=== PATIENT | female | born 1990 | race Caucasian/White ===

== ENCOUNTER → 2017-08-13 14:32 | Outpatient (REF) | payer OTHER, SELFPAY ==
[2017-08-13 19:50] LABS: Basophils % 0.4 % (0.1-2.0); Eosinophils # 0.2 K/mm3 (0.0-0.4); Eosinophils % 3.2 % (0.1-12.0); Hematocrit 39.6 % (37.0-47.0); Hemoglobin 11.8 g/dL (12.2-16.2); Lymphocytes # 2.1 K/mm3 (0.7-4.5); Mean Corpuscular HGB Conc 29.7 g/dL (31.8-35.4); Mean Corpuscular Hemoglobin 24.1 pg (27.0-31.2); Mean Platelet Volume 7.7 fl (7.4-10.4); Monocytes # 0.3 K/mm3 (0.1-1.0); Monocytes % 4.8 % (1.7-9.3); Neutrophils # 3.5 K/mm3 (1.8-7.8); Neutrophils % 57.6 % (37.0-80.0); Platelet Count 294 K/mm3 (142-424); Red Blood Count 4.89 M/mm3 (4.20-5.40); Red Cell Distribution Width 17.5 % (11.5-17.5)
[2017-08-13 19:59] LABS: Alanine Aminotransferase 39 U/L (12-78); Albumin Level 3.8 gm/dL (3.4-5.0); Alkaline Phosphatase 103 U/L (46-116); Anion Gap 10.2 mEq/L (5-15); Aspartate Amino Transferase 24 U/L (15-37); Bilirubin,Total 0.6 mg/dL (0.2-1.0); Blood Urea Nitrogen 7 mg/dL (7-18); Calcium 8.6 mg/dL (8.5-10.1); Carbon Dioxide 30 mmol/L (21.0-32.0); Chloride 104 mmol/L (98-107); Chol/HDL Ratio 9.8 (1-3.5); Cholesterol 265 mg/dL (140-200); Estimated Glomerular Filt Rate 147 ml/min (>60); Free T4 (Free Thyroxine) 0.97 ng/dl (0.76-1.46); GFR (African American) 178 ML/MIN (>60); Globulin 3.7 gm/dl (1.3-3.2); Glucose 98 mg/dL (74-106); HDL Cholesterol 27 mg/dL (29-89); Potassium 4.2 mmoL/L (3.5-5.1); Sodium 140 mmol/L (136-145); Thyroid Stimulating Hormone 1.59 uIU/ml (0.358-3.740); Total Protein,Serum 7.5 gm/dL (6.4-8.2)
[2017-08-13 20:26] LABS: Triglycerides 582 mg/dL (30-200)
[2017-08-16 15:11] LABS: Vitamin B12 792 pg/mL (232-1245); Vitamin D 25 Hydroxy 21.5 ng/mL (30.0-100.0)
== END ==
LOC: LAB 14:32
PROVIDERS: Visit Provider Emergency Medicine
DX: R53.83 Other fatigue (principal)
CPT/HCPCS: 80053; 80061; 82607; 82652; 84439; 84443; 85025

== ENCOUNTER 2021-01-07 12:37 | Emergency (ER) | payer OTHER, SELFPAY ==
[2021-01-07 12:39] VITALS: BP 138/90; PULSE 101; RESP 21; TEMP 37.2; O2SAT 98; BMI 36.2
[2021-01-07 13:42] LABS: Adenovirus,PCR Not Detected (NotDetected); Bordetella Pertussis Not Detected (NotDetected); Chlamydophila Pneumoniae, PCR Not Detected (NotDetected); Coronavirus 19, PCR Not Detected (NotDetected); Coronavirus 229E Not Detected (NotDetected); Coronavirus NL63 Not Detected (NotDetected); Coronavirus OC43 Not Detected (NotDetected); Coronovirus HKU1,PCR Not Detected (NotDetected); Human Metapneumovirus Not Detected (NotDetected); Influenza A, PCR Not Detected (NotDetected); Influenza AH1, 2009 Not Detected (NotDetected); Influenza AH1, PCR Not Detected (NotDetected); Influenza AH3,PCR Not Detected (NotDetected); Influenza B, PCR Not Detected (NotDetected); Mycoplasma Pneumoniae, PCR Not Detected (NotDetected); Parainfluenza 1, PCR Not Detected (NotDetected); Parainfluenza 2, PCR Not Detected (NotDetected); Parainfluenza 3, PCR Not Detected (NotDetected); Parainfluenza 4, PCR Not Detected (NotDetected); Respiratory Syncytial Virus Not Detected (NotDetected); Rhinovirus/Enterovirus Not Detected (NotDetected)
[2021-01-07 13:45] LABS: UTC Strep Screen (Rapid) Negative (Negative)
--- NOTE | 2021-01-07 14:31 | HMH.EDUTC ---
[facility] [place] Disposition Clinical Impression: Bronchitis Disposition: Home, Self-Care Condition on Discharge: Good Instructions: DI for Acute Bronchitis Additional Instructions: I will call with results of upper respiratory panel Prescriptions: Albuterol Sulfate [Albuterol Sulfate Hfa] 2 puff IH Q4HP PRN 30 Days #1 hfa.aer.[id number] PRN Reason: Wheezing Transmission Status: Pending to [facility] predniSONE [Prednisone 20mg Tab] 20 mg PO BID 5 Days #10 tab Transmission Status: Pending to [facility] Promethazine/Dextromethorphan [Promethazine-Dm Syrup] 5 - 10 ml PO Q4HP PRN 10 Days #180 ml PRN Reason: Cough Transmission Status: Pending to [facility] Azithromycin [Z-Kostas 250mg Tab] 250 mg PO DIRECTED #6 tab Transmission Status: Pending to [facility] Referrals: Cristofer Arriaga [Primary Care Provider] - Time of Disposition: 14:39 Medical Decision Making - Edward Inquiry Pt receiving controlled substance: No Vital Signs: 01/07/21 12:39 Temperature 98.9 F Temperature Source Oral Pulse Rate [Left Radial] 101 H Respiratory Rate 21 Blood Pressure [Right Arm] 138/90 Blood Pressure Mean [Right Arm] 106 Blood Pressure Source [Right Arm] Automatic Cuff Blood Pressure Position [Right Arm] Sitting 02 Sat by Pulse Oximetry 98 Oxygen Delivery Method Room Air - Lab Data Lab results reviewed: Yes: I reviewed the patient's lab results. Lab Results 01/07/21 13:27: Strep Scn Rapid Clinic Negative 01/07/21 13:30: SARS-CoV-2 (PCR) Not detected, Influenza A Untype (PCR) Not detected, Influenza Type B (PCR) Not detected Orders (Tests/Meds): ORDERS Category Date Time Status Upper Respiratory Panel, PCR Routine Lab 01/07/21 13:30 Received Strep Screen Confirmation Stat Micro 01/07/21 13:27 Received [facility] [place] HPI - General Stated complaint: sore throat cough headache Time Seen by Provider: 01/07/21 14:31 Mode of Arrival: Ambulatory Source of Information: Patient Limitations: No Limitations HEENT Symptoms (Recalled from RN notes): Yes Resp Symptoms (Recalled from RN notes): No Skin Symptoms (Recalled from RN notes): No MS Symptoms (Recalled from RN notes): No Functional Status (Recalled from RN notes): wnl - History of Present Illness Provider Complaint: Bilateral ear pain, cough, congestion, sore throat X 3 days. No fever. Has body aches and chills. No vomiting or diarhea. Onset (ago): day(s) (3) Location: chest Relieving factors: none Exacerbating factors: none Associated symptoms: cough, malaise Treatments prior to arrival: none - Related Data Home Medications Medication Instructions Recorded Confirmed ferrous sulfate 325 mg (65 mg 325 mg PO DAILY tab 06/05/19 06/05/19 iron) tablet ibuprofen 600 mg tablet 600 mg PO TID PRN tab 06/05/19 06/05/19 Previous Rx's Medication Instructions Recorded multivitamin,tm-shql-yixttved 1 tab PO DAILY #90 tab 01/13/18 omeprazole 40 mg capsule,delayed See Rx Instructions .ROUTE 10/30/18 release .COMPLEX #90 unspecified fluticasone propionate 50 1 spray INTRANASAL QDAY #9.9 ml 02/25/19 mcg/actuation nasal spray,suspension Mupirocin [Bactroban 2% Ointment 1 applicatio TP TID 7 Days #1 tube 03/28/19 22gm tube] ergocalciferol (vitamin D2) 1,250 See Rx Instructions .ROUTE 05/06/19 mcg (50,000 unit) capsule .COMPLEX #12 unspecified amoxicillin 875 mg tablet 875 mg PO BID #14 tab 06/05/19 benzonatate 200 mg capsule 200 mg PO TID PRN #30 cap 06/05/19 cholecalciferol (vitamin D3) 25 See Rx Instructions .ROUTE 06/23/19 mcg (1,000 unit) tablet .COMPLEX #90 unspecified citalopram 40 mg tablet 40 mg PO DAILY #90 tab 07/10/19 metoprolol succinate 25 mg See Rx Instructions .ROUTE 07/10/19 tablet,extended release 24 hr .COMPLEX #90 unspecified Loperamide HCl [Loperamide] 2 mg PO TIDP PRN #10 tab 07/31/19 Ondansetron [Zofran 4mg ODT] 4 mg PO TIDP PRN #10 tab.rapdis 07/31/19 Albuterol Sulfate [Albuterol 2 puff IH
[2021-01-07 14:44] VITALS: BP 138/90; PULSE 101; RESP 21; TEMP 37.2; O2SAT 98
== END 2021-01-07 14:47 | disposition home or self-care (01) ==
PROVIDERS: Emergency Provider Physician Assistant; PCP Family Medicine
DX: J20.9 Acute bronchitis, unspecified (principal); F41.9 Anxiety disorder, unspecified; K21.9 Gastro-esophageal reflux disease without esophagitis; I10 Essential (primary) hypertension; F17.210 Nicotine dependence, cigarettes, uncomplicated
CPT/HCPCS: 87486; 87581; 87633; 87798; 87880; 99203; G0463; U0003

== ENCOUNTER → 2021-04-14 20:14 | Outpatient (CLI) | payer OTHER, SELFPAY | PROVIDERS: Visit Provider Nurse Practitioner Family | DX: Z20.822 Contact with and (suspected) exposure to COVID-19 (principal); J02.9 Acute pharyngitis, unspecified | CPT/HCPCS: C9803; U0003; U0005 ==

== ENCOUNTER 2021-04-28 09:00 | Emergency (ER) | payer OTHER, SELFPAY ==
[2021-04-28 09:00] VITALS: BP 156/100; PULSE 110; RESP 18; TEMP 37.1; O2SAT 95; BMI 41.5
[2021-04-28 09:26] LABS: UTC Influenza A Antigen Negative (Negative); UTC Influenza B Antigen Negative (Negative)
--- NOTE | 2021-04-28 09:47 | HMH.EDUTC ---
[facility] [place] Clinical Impression: Viral syndrome, Bronchitis, Exposure to COVID-19 virus, Hypokalemia Disposition: Home, Self-Care Condition on Discharge: Good Instructions: DI for Viral Syndrome Additional Instructions: Drink plenty of fluids. Take tylenol or ibuprofen for pain or fever. Take the medications as directed. Follow up with your regular doctor. GO TO THE ER FOR ANY WORSENING SYMPTOMS Quarantine until you know the results of your covid-19 test. If it is positive, the health department should call you and give you further instructions about your length of Quarantine and other things. Notify your school or workplace of your results and follow their instructions regarding return to work/school. Prescriptions: Ondansetron [Zofran 4mg ODT] 4 mg PO Q8HP PRN #20 tab PRN Reason: Nausea Transmission Status: Received by [facility] dexAMETHasone [Decadron] 6 mg PO DAILY 6 Days #6 tab Transmission Status: Received by [facility] Potassium Chloride [K-Tab ER 20 mEq] 40 meq PO ONCE #2 tab Transmission Status: Received by [facility] Azithromycin [Z-Kostas 250mg Tab*] 250 mg PO UD DOSE PK #6 tab Transmission Status: Received by [facility] Referrals: Cristofer Arriaga [Primary Care Provider] - Forms: Work/School Release Time of Disposition: 09:50 Medical Decision Making - Medical Records Medical records reviewed: No: I reviewed the patient's medical records. - Edward Inquiry Pt receiving controlled substance: No Vital Signs: 04/28/21 09:00 04/28/21 11:10 Temperature 98.7 F 98.7 F Temperature Source Oral Pulse Rate 110 H Pulse Rate [Right Brachial] 110 H Respiratory Rate 18 18 Blood Pressure 156/100 H Blood Pressure [Right Arm] 156/100 H Blood Pressure Mean [Right Arm] 118 Blood Pressure Source [Right Arm] Automatic Cuff Blood Pressure Position [Right Arm] Sitting 02 Sat by Pulse Oximetry 95 Oxygen Delivery Method Room Air - Lab Data Lab results reviewed: Yes: I reviewed the patient's lab results. Lab Results 04/28/21 09:15: Influenza Type A Ag Negative, Influenza Type B Ag Negative 04/28/21 09:52: Strep Scn Rapid Clinic Negative 04/28/21 10:00: WBC 6.1, RBC 5.16, Hgb 17.0 H, Hct 48.1 H, MCV 93.2, MCH 33.0 H, MCHC 35.4, RDW 13.7, Plt Count 246, MPV 7.8, Neut % (Auto) 60.5, Lymph % (Auto) 29.9, [place] % (Auto) 7.5, Eos % (Auto) 0.5, Baso % (Auto) 1.5, Neut # (Auto) 3.7, Lymph # (Auto) 1.8, [place] # (Auto) 0.5, Eos # (Auto) 0.0, Baso # (Auto) 0.1 04/28/21 10:00: Sodium 136, Potassium 3.4 L, Chloride 100, Carbon Dioxide 25, Anion Gap 14.4, BUN 7, Creatinine 0.60, Estimated Creat Clear 102, Estimated GFR 116, Est GFR ( Amer) 140, Glucose 199 H, Calcium 9.2, Total Bilirubin 0.9, AST 48 H, ALT 47, Alkaline Phosphatase 92, Total Protein 7.8, Albumin 4.7, Globulin 3.1, Albumin/Globulin Ratio 1.5 Result diagrams: 04/28/21 10:00 04/28/21 10:00 Orders (Tests/Meds): ED MEDICATIONS Generic Name Dose Route Start Last Admin Trade Name Freq PRN Reason Stop Dose Admin Sodium Chloride 1,000 mls @ 999 mls/hr 04/28/21 10:30 04/28/21 10:05 Sod Chlor 0.9% 1000ml Bag IV 04/28/21 11:30 999 mls/hr .Q1H1M LIZ Administration Discontinued Medications Generic Name Dose Route Start Last Admin Trade Name Freq PRN Reason Stop Dose Admin Ibuprofen 800 mg 04/28/21 11:06 04/28/21 11:09 Ibuprofen 400 Mg Tablet PO 04/28/21 11:07 800 mg ONCE ONE Administration Ondansetron HCl 4 mg 04/28/21 11:06 04/28/21 11:09 Ondansetron 4mg Odt SL 04/28/21 11:07 4 mg ONCE ONE Administration ORDERS Category Date Time Status Covid-19 Nasal PCR ([facility]) Routine Lab 04/28/21 09:45 Received Strep Screen Confirmation Routine Micro 04/28/21 09:52 Received [facility] [place] HPI - General Stated complaint: covid symptoms, fever Time Seen by Provider: 04/28/21 09:15 Mode of Arrival: Ambulatory Source of Information: Patient Limitations
[2021-04-28 09:58] LABS: UTC Strep Screen (Rapid) Negative (Negative)
[2021-04-28 10:44] LABS: Basophils # 0.1 K/mm3 (0-0.2); Basophils % 1.5 % (0.1-2.0); Eosinophils % 0.5 % (0.1-12.0); Hematocrit 48.1 % (37.0-47.0); Lymphocytes # 1.8 K/mm3 (0.7-4.5); Lymphocytes % 29.9 % (10-50); Mean Corpuscular HGB Conc 35.4 g/dL (31.8-35.4); Mean Corpuscular Volume 93.2 fl (81-99); Mean Platelet Volume 7.8 fl (7.4-10.4); Monocytes # 0.5 K/mm3 (0.1-1.0); Monocytes % 7.5 % (1.7-9.3); Neutrophils # 3.7 K/mm3 (1.8-7.8); Neutrophils % 60.5 % (37.0-80.0); Platelet Count 246 K/mm3 (142-424); Red Blood Count 5.16 M/mm3 (4.20-5.40); Red Cell Distribution Width 13.7 % (11.5-17.5); White Blood Count 6.1 K/mm3 (4.8-10.8)
[2021-04-28 10:46] LABS: Chloride 100 mmol/L (98-107); Potassium 3.4 mmoL/L (3.5-5.1); Sodium 136 mmol/L (136-145)
[2021-04-28 10:49] LABS: Alanine Aminotransferase 47 U/L (12-78); Albumin Level 4.7 g/dl (3.5-5.0); Albumin/Globulin Ratio 1.5 (1.1-1.8); Alkaline Phosphatase 92 U/L (38-126); Anion Gap 14.4 mEq/L (5-15); Aspartate Amino Transferase 48 U/L (14-36); Bilirubin,Total 0.9 mg/dl (0.2-1.3); Blood Urea Nitrogen 7 mg/dl (7-17); Carbon Dioxide 25 mmol/L (22.0-30.0); Creatinine Clearance Estimated 102 mL/min (50-200); Estimated Glomerular Filt Rate 116 ml/min (>60); GFR (African American) 140 ML/MIN (>60); Globulin 3.1 g/dL (1.3-3.2); Total Protein,Serum 7.8 g/dl (6.3-8.2)
[2021-04-28 10:50] LABS: Calcium 9.2 mg/dl (8.4-10.2); Glucose 199 mg/dl (74-100)
[2021-04-28 11:10] VITALS: BP 156/100; PULSE 110; RESP 18; TEMP 37.1; O2SAT 95
--- NOTE | 2021-05-02 12:31 | INFXCTL.NOTE ---
Notified patient of COVID-19 positive results. Patient stated both she and are aware, received results from [facility] portal. - YOLANDA Carney
== END 2021-04-28 11:32 | disposition home or self-care (01) ==
PROVIDERS: Emergency Provider Nurse Practitioner Family; PCP Family Medicine
DX: U07.1 COVID-19 (principal); J20.9 Acute bronchitis, unspecified; E87.6 Hypokalemia
CPT/HCPCS: 80053; 85025; 87804; 87880; 96365; 99202; C9803; G0463; U0003; U0005

== ENCOUNTER 2021-08-08 02:59 | Emergency (ER) | payer OTHER, SELFPAY ==
[2021-08-08 03:01] VITALS: BP 126/86; PULSE 78; RESP 18; TEMP 36.9; O2SAT 98; BMI 39.4
[2021-08-08 03:28] VITALS: BP 123/80; BP 124/74; BP 126/78; PULSE 73; PULSE 78; PULSE 80
[2021-08-08 03:31] LABS: Coronavirus 19, PCR Not Detected (NotDetected); Influenza A, PCR Not Detected (NotDetected); Influenza B, PCR Not Detected (NotDetected)
--- NOTE | 2021-08-08 03:31 | XR_ITS ---
PROCEDURE INFORMATION: Exam: XR Chest Exam date and time: 08/08/2021 3:31 AM Age: 30 years old Clinical indication: Sternal or substernal pain; Additional info: Chest pain TECHNIQUE: Imaging protocol: XR of the chest. Views: 2 views. COMPARISON: CR CXR2V XR chest 2V 01/10/2018 10:48 AM FINDINGS: Lungs: No acute findings or consolidation. Pleural spaces: No pleural effusion. No pneumothorax. Heart/Mediastinum: No acute findings or cardiomegaly. Bones/joints: No acute findings. IMPRESSION: No acute cardiopulmonary findings.
[2021-08-08 03:33] LABS: Microscopic, Urine URINE MICROSCOPIC (MICROSCOPIC)
[2021-08-08 03:35] LABS: Basophils # 0.2 K/mm3 (0-0.2); Basophils % 2.7 % (0.1-2.0); Eosinophils # 0.1 K/mm3 (0.0-0.4); Eosinophils % 1.2 % (0.1-12.0); Hematocrit 52.7 % (37.0-47.0); Hemoglobin 16.7 g/dL (12.2-16.2); Lymphocytes # 2.4 K/mm3 (0.7-4.5); Lymphocytes % 31.4 % (10-50); Mean Corpuscular HGB Conc 31.8 g/dL (31.8-35.4); Mean Corpuscular Hemoglobin 31.6 pg (27.0-31.2); Mean Corpuscular Volume 99.4 fl (81-99); Mean Platelet Volume 8.1 fl (7.4-10.4); Monocytes # 0.3 K/mm3 (0.1-1.0); Monocytes % 3.8 % (1.7-9.3); Neutrophils # 4.7 K/mm3 (1.8-7.8); Neutrophils % 60.8 % (37.0-80.0); Platelet Count 228 K/mm3 (142-424); Red Cell Distribution Width 13.2 % (11.5-17.5); White Blood Count 7.7 K/mm3 (4.8-10.8)
--- NOTE | 2021-08-08 03:36 | CT_ITS ---
PROCEDURE INFORMATION: Exam: CT Abdomen And Pelvis With Contrast Exam date and time: 08/08/2021 3:36 AM Age: 30 years old Clinical indication: Nausea and other: Diarrhea; Prior surgery; Surgery type: , hysterectomy; Additional info: Loose stools TECHNIQUE: Imaging protocol: Computed tomography of the abdomen and pelvis with contrast. Radiation optimization: All CT scans at this facility use at least one of these dose optimization techniques: automated exposure control; mA and/or kV adjustment per patient size (includes targeted exams where dose is matched to clinical indication); or iterative reconstruction. Contrast material: ISOVUE; Contrast volume: 75 ml; Contrast route: IV; COMPARISON: CT ABDOMEN PELVIS W CON 07/31/2019 8:41 AM FINDINGS: Liver: No acute findings. No mass. Gallbladder and bile ducts: No acute findings, calcified stones or ductal dilation. Pancreas: No acute findings, focal abnormality or ductal dilation. Spleen: No splenomegaly or focal abnormality. Adrenal glands: Normal. No mass. Kidneys and ureters: No hydronephrosis. Stomach and bowel: No obstruction. No mucosal thickening. Appendix: No evidence of appendicitis. Intraperitoneal space: No free air. No significant fluid collection. Vasculature: No abdominal aortic aneurysm. Lymph nodes: No pathologically enlarged lymph nodes. Urinary bladder: Unremarkable as visualized. Reproductive: Unremarkable as visualized. Bones/joints: No acute fracture. Soft tissues: No acute findings. IMPRESSION: No acute findings.
[2021-08-08 03:40] LABS: Alanine Aminotransferase 33 U/L (12-78); Albumin Level 4.7 g/dl (3.5-5.0); Albumin/Globulin Ratio 1.7 (1.1-1.8); Alkaline Phosphatase 65 U/L (38-126); Amylase 67 U/L (30-110); Anion Gap 11.2 mEq/L (5-15); Aspartate Amino Transferase 32 U/L (14-36); Bilirubin,Total 1.2 mg/dl (0.2-1.3); Blood Urea Nitrogen 16 mg/dl (7-17); Calcium 9.3 mg/dl (8.4-10.2); Carbon Dioxide 26 mmol/L (22.0-30.0); Chloride 102 mmol/L (98-107); Creatinine Clearance Estimated 201 mL/min (50-200); Estimated Glomerular Filt Rate 116 ml/min (>60); GFR (African American) 140 ML/MIN (>60); Globulin 2.7 g/dL (1.3-3.2); Glucose 96 mg/dl (74-100); Lipase 133 U/L (23-300); Potassium 4.2 mmoL/L (3.5-5.1); Sodium 135 mmol/L (136-145); Total Protein,Serum 7.4 g/dl (6.3-8.2)
[2021-08-08 03:42] LABS: Appearance,Urine CLEAR (Clear); Bilirubin,Urine Negative (Negative); Blood, Urine Negative (Negative); Color,Urine YELLOW (Yellow); Glucose,Urine (UA) Negative (Negative); Ketones,Urine 1+ (Negative); Leukocyte Esterase,Urine Negative (Negative); Nitrate,Urine Negative (Negative); PH,Urine 5.5 (5.0-8.5); Protein,Urine Negative (Negative); Urobilinogen,Urine 0.2 EU/dl (0.2)
[2021-08-08 03:45] LABS: C-Reactive Protein 2.2 mg/L (0-4)
[2021-08-08 03:50] LABS: Bacteria,Urine 1+ /lpf; WBC,Urine Occasional #/hpf (0-3)
[2021-08-08 04:00] LABS: Procalcitonin < 0.030 ng/mL (0.0-2.0)
[2021-08-08 04:01] VITALS: BP 111/62; PULSE 63; O2SAT 97
--- NOTE | 2021-08-08 04:11 | PC.NURSE ---
PT TO RADIOLOGY VIA AMBULATION. NO ACUTE DISTRESS NOTED.
--- NOTE | 2021-08-08 04:25 | PC.NURSE ---
PT RETURN FROM RADIOLOGY. NO COMPLAINTS VOICED. NO ACUTE DISTRESS NOTED. PT AWARE OF NEED FOR STOOL SAMPLE.
[2021-08-08 04:28] LABS: Erythrocyte Sedimentation Rate 15 mm/hr (0-20)
[2021-08-08 04:30] VITALS: BP 102/65; PULSE 66; O2SAT 99
--- NOTE | 2021-08-08 04:38 | PC.NURSE ---
PT UPDATED. PT REPORTS NAUSEA IS COMPLETELY RESOLVED AND REQUESTS NOTE FOR WORK UPON DISCHARGE.
[2021-08-08 05:00] VITALS: BP 110/76; PULSE 67; O2SAT 99
--- NOTE | 2021-08-08 05:10 | HMH.EDNVD ---
ED Disposition Clinical Impression: Gastroenteritis Disposition: Home, Self-Care Condition on Discharge: Good Instructions: DI for Diarrhea and Traveler's Diarrhea -- Adult Additional Instructions: fluids and see pcp for folllow up Referrals: Cristofer Arriaga [Primary Care Provider] - - Critical Care Critical Care Time: No Attestation: On 08/08/21, the high probability of a clinically significant, sudden or life threatening deterioration of the following system(s) required my full and direct attention, intervention and personal management. The time I documented below is in addition to time spent performing reported procedures but includes the following listed in this critical care notation. Medical Decision Making - Medical Records Medical records reviewed: Yes: I reviewed the patient's medical records. - Edward Inquiry Pt receiving controlled substance: No Vital Signs: 08/08/21 03:01 08/08/21 03:28 Temperature 98.5 F Temperature Source Oral Pulse Rate [Left Radial] 78 Pulse Rate [Orthostatic Lying Right] 73 Pulse Rate [Orthostatic Sitting Right] 78 Pulse Rate [Orthostatic Standing Right] 80 Respiratory Rate 18 Blood Pressure [Orthostatic Lying Left Arm] 124/74 Blood Pressure [Orthostatic Sitting Left Arm] 126/78 Blood Pressure [Orthostatic Standing Right Arm] 123/80 Blood Pressure [Right Arm] 126/86 Blood Pressure Mean [Right Arm] 99 Blood Pressure Position [Right Arm] Sitting 02 Sat by Pulse Oximetry 98 Oxygen Delivery Method Room Air - Lab Data Lab results reviewed: Yes: I reviewed the patient's lab results. Lab Results 08/08/21 03:13: Urine Color Yellow, Urine Appearance Clear, Urine pH 5.5, Ur Specific [place] 1.010, Urine Protein Negative, Urine Glucose (UA) Negative, Urine Ketones 1+, Urine Blood Negative, Urine Nitrate Negative, Urine Bilirubin Negative, Urine Urobilinogen 0.2, Ur Leukocyte Esterase Negative, Urine WBC Occasional, Ur Squamous Epith Cells 3-5, Urine Bacteria 1+ 08/08/21 03:13: SARS-CoV-2 (PCR) Not detected, Influenza A Untype (PCR) Not detected, Influenza Type B (PCR) Not detected 08/08/21 03:18: WBC 7.7, RBC 5.30, Hgb 16.7 H, Hct 52.7 H, MCV 99.4 H, MCH 31.6 H, MCHC 31.8, RDW 13.2, Plt Count 228, MPV 8.1, Neut % (Auto) 60.8, Lymph % (Auto) 31.4, [place] % (Auto) 3.8, Eos % (Auto) 1.2, Baso % (Auto) 2.7 H, Neut # (Auto) 4.7, Lymph # (Auto) 2.4, Young # (Auto) 0.3, Eos # (Auto) 0.1, Baso # (Auto) 0.2, ESR 15 08/08/21 03:18: Sodium 135 L, Potassium 4.2, Chloride 102, Carbon Dioxide 26, Anion Gap 11.2, BUN 16, Creatinine 0.60, Estimated Creat Clear 201, Estimated GFR 116, Est GFR ( Amer) 140, Glucose 96, Calcium 9.3, Total Bilirubin 1.2, AST 32, ALT 33, Alkaline Phosphatase 65, C-Reactive Protein 2.2, Total Protein 7.4, Albumin 4.7, Globulin 2.7, Albumin/Globulin Ratio 1.7, Amylase 67, Lipase 133, Procalcitonin < 0.030 Result diagrams: 08/08/21 03:18 08/08/21 03:18 Orders (Tests/Meds): ED MEDICATIONS Generic Name Dose Route Start Last Admin Trade Name Freq PRN Reason Stop Dose Admin Sodium Chloride 1,000 mls @ 999 mls/hr 08/08/21 03:30 08/08/21 03:30 Sod Chlor 0.9% 1000ml Bag IV 08/08/21 04:30 999 mls/hr .Q1H1M LIZ Administration Discontinued Medications Generic Name Dose Route Start Last Admin Trade Name Freq PRN Reason Stop Dose Admin Iopamidol 75 ml 08/08/21 04:17 08/08/21 04:19 Iopamidol-370 (76%);100ml Bottle IV 08/08/21 04:18 75 ml ONCE ONE Administration Ondansetron HCl 4 mg 08/08/21 04:01 08/08/21 04:03 Ondansetron 4mg/2ml Vial IV 08/08/21 04:02 4 mg ONCE ONE Administration Sodium Chloride 10 ml 08/08/21 04:17 08/08/21 04:19 Sodium Chloride 0.9% 10ml Syr (Rad Only) IV 08/08/21 04:18 10 ml ONCE ONE Administration ORDERS Category Date Time Status Diarrhea 23 Panel, PCR Stat Lab 08/08/21 03:23 Ordered - Radiology Data #1 Image(s): Chest Image Reviewed: Yes I have reviewed ra
[2021-08-08 05:17] VITALS: BP 110/76; PULSE 89; RESP 16; TEMP 37.1; O2SAT 98
== END 2021-08-08 05:22 | disposition home or self-care (01) ==
PROVIDERS: Emergency Provider Emergency Medicine; PCP Family Medicine
DX: K52.9 Noninfective gastroenteritis and colitis, unspecified (principal); F41.8 Other specified anxiety disorders; K21.9 Gastro-esophageal reflux disease without esophagitis; I10 Essential (primary) hypertension; F17.210 Nicotine dependence, cigarettes, uncomplicated
CPT/HCPCS: 71046; 74177; 80053; 81001; 82150; 83690; 84145; 85025; 85651; 86140; 96365; 96375; 99284; C9803; J2405; Q9967; U0003; U0005

== ENCOUNTER 2022-03-23 22:18 | Emergency (ER) | payer OTHER, SELFPAY ==
[2022-03-23 22:19] VITALS: BP 148/89; PULSE 90; RESP 18; TEMP 36.9; O2SAT 98; BMI 31.7
--- NOTE | 2022-03-23 22:31 | HMH.EDEXTP ---
Discharge Plan Disposition Patient Disposition: Home, Self-Care Condition: Good Prescriptions Prescriptions: No Action citalopram 40 MG tablet 40 mg PO DAILY omeprazole 40 MG capsule,delayed release(DR/EC) 40 mg PO HS Rx Instructions: TAKE 1 CAPSULE BY MOUTH EVERY DAY FOR GERD metoprolol succinate 25 MG tablet extended release 24 hr 25 mg PO DAILY Rx Instructions: TAKE ONE TABLET BY MOUTH EVERY DAY Referrals Follow up/Referrals: Cristofer Arriaga [Primary Care Provider] - See instructions Clinical Impressions Clinical Impression: Acute knee pain Instructions Patient Instructions: DI for Miranda Cyst, DI for Knee Pain Discharge ED Provider: Babar Okeefe Extremity Problem HPI General Chief complaint: Extremity Injury, Lower Stated complaint: PAIN RIGHT LEG Time Seen by Provider: 03/23/22 22:18 Mode of Arrival: Ambulatory Source of Information: Patient Limitations: No Limitations Description of Symptoms (Recalled from ER Triage Doc. by RN): pt c/o pain behind rt knee cap that started this morning. History of Present Illness HPI Narrative: Patient is a 31-year-old female who presents with concern for right knee pain. 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 She says a coworker said this could be a blood clot so she wanted to come in for evaluation. She does not take any oral control. No clotting disorders. No history of blood clot. No shortness of breath. No swelling. She says that her legs appear to be the same size. She locates her pain only in the right popliteal fossa. Denies any numbness or tingling. Related Data Home Medications Medication Instructions Recorded Confirmed citalopram 40 mg tablet 40 mg PO DAILY Anxiety 04/28/21 08/08/21 metoprolol succinate 25 mg 25 mg PO DAILY Hypertension 04/28/21 08/08/21 tablet,extended release 24 hr omeprazole 40 mg capsule,delayed 40 mg PO HS GERD 04/28/21 08/08/21 release Allergies Allergy/AdvReac Type Severity Reaction Status Date / Time cephalexin Allergy Intermediate I-RASH Verified 05/07/21 12:40 [facility] Medical History (Updated 03/23/22 @ 22:31 by Babar Okeefe MD) Depression GERD (gastroesophageal reflux disease) Hyperlipidemia Hypertension Vitamin D deficiency Social History Smoking Status: Current every day smoker tobacco type: cigarettes packs per day: 1 second hand exposure: Yes alcohol intake: never substance use type: denies use current occupational status: other Travel in the last 8 weeks: None household members: spouse housing: house ROS Obtained: Yes All systems reviewed & no additional complaints except as documented A 14 point review of system was obtained otherwise negative except per HPI Physical Exam General General appearance: alert and in no apparent distress Head Head exam: atraumatic, normocephalic and normal inspection Eye Eye exam: Present normal appearance, PERRL and EOMI ENT ENT exam: Present normal exam, normal oropharynx, mucous membranes moist, TM's normal bilaterally and normal external ear exam Neck Neck exam: Present normal inspection, full ROM and trachea midline; Absent meningismus or lymphadenopathy Chest Chest inspection: Present normal inspection and symmetric chest wall rise; Absent tenderness Respiratory Respiratory exam: Present normal lung sounds bilaterally; Absent respiratory distress Cardiovascular Cardiovascular exam: Present regular rate and normal rhythm; Absent JVD Abdominal Exam Abdominal exam: Present soft and normal bowel sounds; Absent distention, tenderness or guarding Extremities Exam Extremities exam: Present normal inspection, full ROM and normal capillary refill; Absent calf tenderness Expanded Lower Extremity Exam Right: Knee exam: Present normal inspection, full ROM and tenderness (Minimal popliteal fossa tenderness); Absent swelling, ecchymosis,
[2022-03-23 22:42] VITALS: BP 148/89; PULSE 90; RESP 18; TEMP 36.9; O2SAT 98
== END 2022-03-23 22:43 | disposition home or self-care (01) ==
PROVIDERS: Emergency Provider Student in an Organized Health Care Education/Training Program; PCP Family Medicine
DX: M25.561 Pain in right knee (principal)
CPT/HCPCS: 99282

== ENCOUNTER 2022-05-04 10:30 | Emergency (ER) | payer SELFPAY ==
--- NOTE | 2022-05-04 12:01 | EXP.UTC ---
Discharge Plan Disposition Patient Disposition: Home, Self-Care Condition: Good Prescriptions Prescriptions: New azithromycin [Zithromax] 250 mg tablet 250 mg PO UD DOSE PK Qty: 6 0RF Rx Instructions: Take two (2) tablets today, then one (1) tablet days #2 thru #5 benzonatate [benzonatate] 100 mg capsule 100 mg PO TIDP PRN (Reason: Cough) Qty: 30 0RF methylprednisolone 4 mg Tablets,Dose Pack 4 mg PO DIRECTED Qty: 21 0RF No Action citalopram 40 MG tablet 40 mg PO DAILY omeprazole 40 MG capsule,delayed release(DR/EC) 40 mg PO HS Rx Instructions: TAKE 1 CAPSULE BY MOUTH EVERY DAY FOR GERD metoprolol succinate 25 MG tablet extended release 24 hr 25 mg PO DAILY Rx Instructions: TAKE ONE TABLET BY MOUTH EVERY DAY Referrals Follow up/Referrals: Cristofer Arriaga [Primary Care Provider] - See instructions Activity Restrictions/Add. Instructions Additional Instructions/Restrictions: Drink plenty of fluids. Take tylenol or ibuprofen for pain or fever. Take the medications as directed. Follow up with your regular doctor. GO TO THE ER FOR ANY WORSENING SYMPTOMS Clinical Impressions Clinical Impression: Viral syndrome, Pharyngitis Stand Alone Forms Stand Alone Forms: Work/School Release Instructions Patient Instructions: DI for Pharyngitis/Tonsillopharyngitis -- Adult, DI for Viral Syndrome Discharge ED Provider: Ramon Eckert [facility] [place] HPI General Stated complaint: sore throat cough body aches Time Seen by Provider: 05/04/22 12:01 History of Present Illness Provider Complaint: He states that for the past 2 days she has had sore throat, chills, low grade fever, cough and she has felt bad Related Data Home Medications Medication Instructions Recorded Confirmed citalopram 40 mg tablet 40 mg PO DAILY Anxiety 04/28/21 08/08/21 metoprolol succinate 25 mg 25 mg PO DAILY Hypertension 04/28/21 08/08/21 tablet,extended release 24 hr omeprazole 40 mg capsule,delayed 40 mg PO HS GERD 04/28/21 08/08/21 release Previous Rx's Medication Instructions Recorded azithromycin 250 mg tablet 250 mg PO UD DOSE PK #6 tabs 05/04/22 (Zithromax) benzonatate 100 mg capsule 100 mg PO TIDP PRN Cough #30 caps 05/04/22 methylprednisolone 4 mg tablets in 4 mg PO DIRECTED #21 tabs 05/04/22 a dose pack Allergies Allergy/AdvReac Type Severity Reaction Status Date / Time cephalexin Allergy Intermediate I-RASH Verified 05/04/22 12:06 [facility] Disclaimer: The information contained in this section may have been updated after the patient was seen, as this information can be updated by other users. Medical History Depression GERD (gastroesophageal reflux disease) Hyperlipidemia Hypertension Vitamin D deficiency Social History Smoking Status: Current every day smoker tobacco type: cigarettes packs per day: 1 second hand exposure: Yes alcohol intake: never substance use type: denies use current occupational status: other Travel in the last 8 weeks: None household members: spouse housing: house ROS Obtained: Yes All systems reviewed & no additional complaints except as documented Constitutional Constitutional: Reports chills and Reports fever(s) Eyes Eyes: Denies eye discharge ENT Ears, Nose, Mouth, and Throat: Reports as per HPI Cardiovascular Cardiovascular: Denies chest pain Respiratory Respiratory: Denies chest congestion and Reports cough Gastrointestinal Gastrointestingal: Reports nausea; Denies abdominal pain, constipation, cramping, diarrhea or vomiting Musculoskeletal Musculoskeletal: Denies arthralgias Integumentary/Breasts Skin/Breast: Denies rash Neurologic Neurologic: Denies paresthesias Physical Exam General General appearance: alert and in no apparent distress Head Head exam: atraumatic, normocephalic
[2022-05-04 12:04] VITALS: BP 126/81; PULSE 77; RESP 16; TEMP 36.7; O2SAT 98; BMI 30.2
[2022-05-04 13:13] VITALS: BP 126/81; PULSE 77; RESP 16; TEMP 36.7
[2022-05-04 14:32] LABS: Adenovirus,PCR Not Detected (NotDetected); Bordetella Pertussis Not Detected (NotDetected); Chlamydophila Pneumoniae, PCR Not Detected (NotDetected); Coronavirus 19, PCR Not Detected (NotDetected); Coronavirus 229E Not Detected (NotDetected); Coronavirus NL63 Not Detected (NotDetected); Coronavirus OC43 Not Detected (NotDetected); Coronovirus HKU1,PCR Not Detected (NotDetected); Human Metapneumovirus Not Detected (NotDetected); Influenza A, PCR Not Detected (NotDetected); Influenza AH1, 2009 Not Detected (NotDetected); Influenza AH1, PCR Not Detected (NotDetected); Influenza AH3,PCR Not Detected (NotDetected); Influenza B, PCR Not Detected (NotDetected); Mycoplasma Pneumoniae, PCR Not Detected (NotDetected); Parainfluenza 1, PCR Not Detected (NotDetected); Parainfluenza 2, PCR Not Detected (NotDetected); Parainfluenza 3, PCR Not Detected (NotDetected); Parainfluenza 4, PCR Not Detected (NotDetected); Respiratory Syncytial Virus Not Detected (NotDetected); Rhinovirus/Enterovirus Not Detected (NotDetected)
== END 2022-05-04 13:29 | disposition home or self-care (01) ==
PROVIDERS: Emergency Provider Nurse Practitioner Family; PCP Family Medicine
DX: J02.9 Acute pharyngitis, unspecified (principal); B34.9 Viral infection, unspecified
CPT/HCPCS: 87581; 87632; 87798; 99212; C9803; G0463; U0003; U0005

== ENCOUNTER 2022-12-24 22:13 | Emergency (ER) | payer SELFPAY ==
--- NOTE | 2022-12-24 22:14 | ECG_ITS ---
APPROVED REPORT Exam: Resting ECG HR:82 bpm ECG Measurements Heart Rate 82 AXES WV 154 P 53 QRSd 89 QRS 54 QT 351 T 41 QTc 390 Conclusion SINUS RHYTHM NORMAL ECG UNCONFIRMED REPORT Electronically signed by : Onel Mistry MD 12/25/2022 21:15:39
[2022-12-24 22:17] VITALS: BP 157/98; PULSE 86; RESP 18; TEMP 37.1; O2SAT 97; BMI 33.0
--- NOTE | 2022-12-24 22:24 | XR_ITS ---
PROCEDURE INFORMATION: Exam: XR Chest Exam date and time: 12/24/2022 10:32 PM Age: 32 years old Clinical indication: Pain; Shortness of breath; Chest pressure; Additional info: Cp, SOA TECHNIQUE: Imaging protocol: Radiologic exam of the chest. Views: 1 view. COMPARISON: CR XR CHEST 2V 08/08/2021 3:58 AM FINDINGS: Lungs: Unremarkable. No consolidation. Pleural spaces: Unremarkable. No pleural effusion. No pneumothorax. Heart/Mediastinum: Unremarkable. No cardiomegaly. Bones/joints: Unremarkable. IMPRESSION: No acute findings.
--- NOTE | 2022-12-24 22:25 | HMH.EDGENADL ---
Discharge Plan Disposition Chief Complaint: Chest Pain Prescriptions Prescriptions: No Action citalopram 40 MG tablet 40 mg PO DAILY omeprazole 40 MG capsule,delayed release(DR/EC) 40 mg PO HS Rx Instructions: TAKE 1 CAPSULE BY MOUTH EVERY DAY FOR GERD metoprolol succinate 25 MG tablet extended release 24 hr 25 mg PO DAILY Rx Instructions: TAKE ONE TABLET BY MOUTH EVERY DAY azithromycin [Zithromax] 250 mg tablet 250 mg PO UD DOSE PK Qty: 6 0RF Rx Instructions: Take two (2) tablets today, then one (1) tablet days #2 thru #5 benzonatate [benzonatate] 100 mg capsule 100 mg PO TIDP PRN (Reason: Cough) Qty: 30 0RF methylprednisolone 4 mg Tablets,Dose Pack 4 mg PO DIRECTED Qty: 21 0RF Activity Restrictions/Add. Instructions Additional Instructions/Restrictions: Please follow-up with your primary care provider. Please return to the emergency department if you develop any new or worsening symptoms or become concerned for your health. Clinical Impressions Clinical Impression: Anxiety attack Discharge ED Provider: Prosper Bailey General Adult HPI General Chief complaint: Chest Pain Stated complaint: CP Time Seen by Provider: 12/24/22 22:20 Mode of Arrival: EMS Source of Information: Patient and EMS Limitations: No Limitations Description of Symptoms (Recalled from ER Triage Doc. by RN): EMS reports pt running outside on arrival crying saying that she can't get a good breathe and that she is having a lot of stress pertaining to work. pt c/o mid to R chest tightness/pressure, difficulty taking a deep breathe and anxiety. onging x25min History of Present Illness HPI narrative: 32-year-old female history of anxiety and prior panic attacks, currently on Celexa presents from work with reported chest tightness, anxiety, palpitations. Patient reports this is similar to panic attacks she has had in the past. She reports no recent fever or illness, reports hypertension but no cardiac history. Denies history of blood clots. Reports that she does not have any significant recent stressors in her life except that she is working much more. Related Data Home Medications Medication Instructions Recorded Confirmed citalopram 40 mg tablet 40 mg PO DAILY Anxiety 04/28/21 08/08/21 metoprolol succinate 25 mg 25 mg PO DAILY Hypertension 04/28/21 08/08/21 tablet,extended release 24 hr omeprazole 40 mg capsule,delayed 40 mg PO HS GERD 04/28/21 08/08/21 release Previous Rx's Medication Instructions Recorded azithromycin 250 mg tablet 250 mg PO UD DOSE PK #6 tabs 05/04/22 (Zithromax) benzonatate 100 mg capsule 100 mg PO TIDP PRN Cough #30 caps 05/04/22 methylprednisolone 4 mg tablets in 4 mg PO DIRECTED #21 tabs 05/04/22 a dose pack Allergies Allergy/AdvReac Type Severity Reaction Status Date / Time cephalexin Allergy Intermediate I-RASH Verified 12/24/22 22:22 [facility] Disclaimer: The information contained in this section may have been updated after the patient was seen, as this information can be updated by other users. Medical History Depression GERD (gastroesophageal reflux disease) Hyperlipidemia Hypertension Vitamin D deficiency Social History Smoking Status: Current every day smoker tobacco type: cigarettes packs per day: 1 second hand exposure: Yes alcohol intake: never substance use type: denies use current occupational status: other Travel in the last 8 weeks: None household members: spouse housing: house ROS Obtained: Yes All systems reviewed & no additional complaints except as documented Physical Exam General General appearance: alert and anxious Head Head exam: atraumatic and normocephalic Eye Eye exam: Present normal appearance, PERRL and EOMI ENT ENT exam: Present normal oropharynx and normal external ear e
--- NOTE | 2022-12-24 22:35 | PC.NURSE ---
RAD at [facility]
[2022-12-24 22:58] VITALS: BP 161/113; PULSE 87; RESP 16; TEMP 36.6
== END 2022-12-24 23:09 | disposition home or self-care (01) ==
PROVIDERS: Emergency Provider Emergency Medicine
DX: R07.9 Chest pain, unspecified (principal); F41.0 Panic disorder [episodic paroxysmal anxiety]; I10 Essential (primary) hypertension; E78.5 Hyperlipidemia, unspecified; K21.9 Gastro-esophageal reflux disease without esophagitis; F32.A Depression, unspecified; F17.210 Nicotine dependence, cigarettes, uncomplicated
CPT/HCPCS: 71045; 93005; 93041; 99284